=== PATIENT | male | born 1965 | race Caucasian/White ===

== ENCOUNTER 2020-04-23 15:16 | Day surgery (SDC) | payer BC ==
[~2020-04-23] VITALS: Ht 190.5 cm; Wt 147.7 kg
[2020-04-23] VITALS (8 sets, daily range): BP systolic 90–110; BP diastolic 44–75; PULSE 52–63; TEMP 98.3–98.5
[~2020-04-23 15:16] MED LIST: OMNICEF 300MG300 MG PO; PHARMASSURE SA160 MG PO; PRINIVIL20 MG PO; [UNRECOGNIZED DRUG - OTHER] PO; [UNRECOGNIZED DRUG - REMARK] PO
[2020-04-23 15:48] LABS: BASO % 0.2 % (0.0-2.0); EOS # 0.2 (0.0-0.7); EOS % 2.2 % (0-4.0); GRAN # 6.8 (1.4-6.5); GRAN % 75.8 % (42.2-75.2); HEMATOCRIT 44.4 % (42.0-52.0); HEMOGLOBIN 15.4 g/dl (13.5-18.0); LYMPH # 1.3 (1.2-3.4); LYMPH % 14.5 % (20.0-51.0); MEAN CELL VOLUME 91 fl (80.0-100.0); MEAN CORPUSCULAR HEMOGLOBIN 32 pg (27.0-31.0); MEAN CORPUSCULAR HGB CONC 35 g/dl (33.0-37.0); MEAN PLATELET VOLUME 10.8 fl (7.4-10.4); MONO # 0.6 (0.1-0.6); MONO % 7.1 % (1.7-9.3); PLATELET COUNT 123 K/mm3 (130-400); RED BLOOD COUNT 4.88 M/mm3 (4.20-5.60)
[2020-04-23 15:49] LABS: COLLECTION METHOD CLEAN CATCH
[2020-04-23 15:59] LABS: ALBUMIN 4.4 gm/dL (3.5-5.0); BILIRUBIN,TOTAL 0.7 mg/dL (0.0-1.0); C-REACTIVE PROTEIN 0.6 mg/dL (0.0-0.9); CALCIUM 9.6 mg/dL (8.4-10.2); CREATININE, serum 1.22 (0.66-1.25); POTASSIUM 3.5 mmol/L (3.4-5.0); TOTAL PROTEIN 7.8 gm/dL (6.4-8.2)
[2020-04-23 16:08] LABS: MUCOUS Present /lpf; PH 6 (5-8); SQUAMOUS EPITHELIAL None Seen /hpf; URINE APPEARANCE Clear; URINE BACTERIA None Seen /hpf; URINE BILIRUBIN Negative (NEGATIVE); URINE BLOOD Negative (NEGATIVE); URINE COLOR Yellow; URINE GLUCOSE Negative (NEGATIVE); URINE KETONE Negative (NEGATIVE); URINE LEUKOCYTE ESTERASE Negative (NEGATIVE); URINE NITRATE Negative (NEGATIVE); URINE PROTEIN(semi-quant) Negative (NEGATIVE); URINE RBC 0-2 /hpf; URINE UROBILINOGEN Negative (NEGATIVE)
--- NOTE | 2020-04-23 21:30 | NUR ---
PT TO FLOOR POST OP LAP APPENDECTOMY. PT STATES ABDOMEN IS TENDER BUT IMPROVED FROM BEFORE SURGERY. SEE 5 PAGE ADMIT ASSESSMENT. 3 LAP SITES WELL APPROXIMATED.
[2020-04-24 03:56] VITALS: BP 119/62; BP 84/37; PULSE 54; TEMP 97.8
[2020-04-24 07:55] VITALS: BP 97/38; PULSE 55; TEMP 97.6
--- NOTE | 2020-04-24 08:40 | NUR ---
Patient in bed eating breakfast. Alert and oriented x 3. Assessment complete. Denies pain at this time. Lap x 3 with edges well approximated. Denies further needs at this time.
--- NOTE | 2020-04-24 10:11 | NUR ---
Lead Miner met with patient to discuss discharge planning. Patient lives in [place], [place] with his sundar Bo (ph#[phone]). Patient sees Dr. Valle for primary care and obtains medications from [facility] in [place], [place] with no difficulties. 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 Patient does not use any DME and is independent with ADLS. Patient reports that his father, Mark (ph#[phone]) is his DPOA-HC although SW did not locate copy in EMR. Patient plans to return home at discharge. No needs identified at this time.
[2020-04-24 11:25] VITALS: BP 111/54; PULSE 59; TEMP 97.6
--- NOTE | 2020-04-24 11:32 | NUR ---
Patient on 1L of o2, Sats at 97%. Took patient off of O2 at this time, family at bedside. Encouraged cough and deep breathing.
--- NOTE | 2020-04-24 11:34 | NUR ---
First visit from the hospitality internship. No needs right now.
--- NOTE | 2020-04-24 12:40 | NUR ---
Patient maintining O2 at 96% on room air, tolerating diet. Continues to deny pain. Family at bedside. Discharge education provided to patient. Educated on when to call provider and follow up appointment. Educated on signs and symptoms of infection. All questions answered. INT to right AC discontinued, catheter tip intact. Denies further needs at this time. Patient ambulated out with surgical staff and spouse.
== END 2020-04-24 12:40 | disposition home or self-care (01) ==
LOC: COL.ER 15:16 → SDCO 17:44 → SURG 17:44 → SDCO 04-24 12:40
PROVIDERS: Emergency Medicine
DX: K35.80 Unspecified acute appendicitis (principal); I10 Essential (primary) hypertension; N40.0 Benign prostatic hyperplasia without lower urinary tract symptoms; Z88.0 Allergy status to penicillin; D69.6 Thrombocytopenia, unspecified; E66.9 Obesity, unspecified; Z68.41 Body mass index [BMI] 40.0-44.9, adult; Z79.899 Other long term (current) drug therapy
CPT/HCPCS: OP; J1100; J2405; J2704; J2765; J3010; J7030; Q9967

== ENCOUNTER 2020-04-30 14:53 | Observation (INO) | payer BC ==
[~2020-04-30] VITALS: Ht 190.5 cm; Wt 152.0 kg
[2020-04-30 15:24] LABS: BASO % 0.2 % (0.0-2.0); EOS # 0.1 (0.0-0.7); EOS % 1.1 % (0-4.0); GRAN # 9.4 (1.4-6.5); GRAN % 76.5 % (42.2-75.2); HEMATOCRIT 44.2 % (42.0-52.0); HEMOGLOBIN 14.7 g/dl (13.5-18.0); LYMPH # 1.4 (1.2-3.4); MEAN CELL VOLUME 94 fl (80.0-100.0); MEAN CORPUSCULAR HEMOGLOBIN 31 pg (27.0-31.0); MEAN CORPUSCULAR HGB CONC 33 g/dl (33.0-37.0); MEAN PLATELET VOLUME 10.5 fl (7.4-10.4); MONO # 1.3 (0.1-0.6); MONO % 10.8 % (1.7-9.3); PLATELET COUNT 169 K/mm3 (130-400); RED BLOOD COUNT 4.69 M/mm3 (4.20-5.60); REDCELL DISTRIBUTION WIDTH-CV 12.1 % (11.5-14.5)
[2020-04-30 15:44] LABS: ALBUMIN 4.2 gm/dL (3.5-5.0); BILIRUBIN,TOTAL 0.8 mg/dL (0.0-1.0); CALCIUM 9.5 mg/dL (8.4-10.2); CREATININE, serum 1.89 (0.66-1.25); POTASSIUM 4.2 mmol/L (3.4-5.0); TOTAL PROTEIN 8.2 gm/dL (6.4-8.2)
[2020-04-30 16:04] LABS: C-REACTIVE PROTEIN 26.2 mg/dL (0.0-0.9)
[2020-04-30 17:11] LABS: INR 1.3 (0.8-3.0); PROTHROMBIN TIME 14.8 SECONDS (9.7-12.8)
[2020-04-30] MEDS ORDERED: FLOMAX 0.40.4 MG/CAP PO (17:22)
[2020-04-30] MEDS ORDERED: MAXZIDE 50 MG-71 TAB PO (17:22)
[2020-04-30] MEDS ORDERED: AMOXICILLIN 8751 TAB PO (17:23)
[2020-04-30] MEDS ORDERED: ALLEGRA 180MG180 MG PO (17:23)
[2020-04-30 17:40] VITALS: BP 114/56; PULSE 74; TEMP 97.9
--- NOTE | 2020-04-30 19:29 | NUR ---
Patient resting in bed. Awake & alert. His father at bedside. rounded. Patient was given morphine for pain in his Right lower quadrant. lower abdomen reddened & hardened swollen spot. After rounded & wound cultrue obtained. Patient reports feeling so much better.Dinner tray ordered. Ivf per orders to Rac. Wilson, med rec & 5 page was completed. Bedside report to Christine.
[2020-04-30 19:58] VITALS: BP 91/47; PULSE 81; TEMP 99.2
[2020-05-01 00:12] VITALS: BP 112/51; PULSE 67; TEMP 98.2
[2020-05-01 04:06] VITALS: BP 119/75; PULSE 92; TEMP 98
--- NOTE | 2020-05-01 05:58 | NUR ---
New orders received from Dr. Grande at beginning of shift. Patient assessed and noted to have a dressing to lower left quadrant of abdomen. Redness noted around dressing. CDI. Continues on LR to right AC. Patient states pain 5/10 to left abdomen. PRN Tylenol effective for pain relief. Patient independent to ambulate to the restroom. Voiding well. Tolerated dinner last evening. Has slept well throughout the night. Will continue to monitor patient.
[2020-05-01 06:42] LABS: ALBUMIN 3.6 gm/dL (3.5-5.0); CALCIUM 8.6 mg/dL (8.4-10.2); CREATININE, serum 1.41 (0.66-1.25); PHOSPHOROUS 4.3 mg/dL (2.5-4.5); POTASSIUM 4.1 mmol/L (3.4-5.0)
[2020-05-01 08:08] LABS: BASO % 0.3 % (0.0-2.0); EOS # 0.1 (0.0-0.7); EOS % 1.5 % (0-4.0); GRAN # 6.3 (1.4-6.5); GRAN % 78.3 % (42.2-75.2); HEMATOCRIT 38.7 % (42.0-52.0); HEMOGLOBIN 12.9 g/dl (13.5-18.0); LYMPH # 0.9 (1.2-3.4); LYMPH % 11.7 % (20.0-51.0); MEAN CELL VOLUME 95 fl (80.0-100.0); MEAN CORPUSCULAR HEMOGLOBIN 32 pg (27.0-31.0); MEAN CORPUSCULAR HGB CONC 33 g/dl (33.0-37.0); MEAN PLATELET VOLUME 10.2 fl (7.4-10.4); MONO # 0.6 (0.1-0.6); MONO % 7.8 % (1.7-9.3); PLATELET COUNT 141 K/mm3 (130-400); RED BLOOD COUNT 4.09 M/mm3 (4.20-5.60); REDCELL DISTRIBUTION WIDTH-CV 12.2 % (11.5-14.5)
[2020-05-01 08:10] VITALS: BP 114/54; PULSE 65; TEMP 99.4
--- NOTE | 2020-05-01 10:35 | NUR ---
PT UP IN BED. IV TO R HAND. CDI. INCISION ON LEFT MEDIAL SIDE COVERERD WITH GAUZE MODER DRESSING.
--- NOTE | 2020-05-01 11:00 | NUR ---
Title I Teacher met with patient to discuss discharge planning. Patient lives in [place], [place] with his fiance, Betzy (ph#[phone]) and sees Dr. Valle for primary care. Patient obtains medications from [facility] in [place], [place]. Patient does not use any DME and is independent with ADLS. Patient states his father, Mark (ph#[phone]) is his DPOA-HC but copy not found in EMR. Patient plans to return home upon discharge and SW will continue to follow as needed.
[2020-05-01 11:56] VITALS: BP 101/58; PULSE 67; TEMP 99.2
[2020-05-01 15:46] VITALS: BP 99/59; PULSE 68; TEMP 98.9
[2020-05-01] MEDS ORDERED: FLAGYL500 MG PO ×2 (16:49→16:50)
[2020-05-01] MEDS ORDERED: LEVAQUIN 750MG750 M1 PO (16:49)
--- NOTE | 2020-05-01 18:14 | NUR ---
DISCHARGE INSTRUCTIONS PROVIDED PT. QUESTIONS ANSWERED. DRESSING SUPPLIES SENT WITH PATIENT. ESCORTED OUT BY WHEEL CHAIR.
== END 2020-05-01 18:15 | disposition home or self-care (01) ==
LOC: COL.ER 14:53 → SURG 16:36
PROVIDERS: Family Medicine; ADMIT Surgery
DX: L02.211 Cutaneous abscess of abdominal wall (principal); Z88.0 Allergy status to penicillin
CPT/HCPCS: A9284; G0378; J1170; J1956; J2270; J2405; J7120